=== PATIENT | female | born 1940 | race Caucasian/White ===

== ENCOUNTER 2020-11-17 19:34 | Emergency (ER) | payer OTHER, BC, SELFPAY ==
[~2020-11-17] VITALS: Ht 172.7 cm; Wt 64.4 kg
[2020-11-17 20:05] VITALS: BP_SYST 128
[2020-11-17 20:41] LABS: BASOPHILS # (AUTO) 0.1 K/uL (0.0-0.2); EOSINOPHILS # (AUTO) 0.1 K/uL (0.0-0.4); EOSINOPHILS % (AUTO) 1.2 % (0.0-4.0); HEMATOCRIT 38.3 % (36-48); HEMOGLOBIN 12.9 g/dL (12.0-16.0); LYMPHOCYTES # (AUTO) 1.8 K/uL (1.0-5.5); LYMPHOCYTES % (AUTO) 28.4 % (20.5-51.5); MEAN CORPUSCULAR HEMOGLOBIN 30 pg (27-31); MEAN CORPUSCULAR HGB CONC 34 % (32-36); MEAN CORPUSCULAR VOLUME 88 fL (79.0-98.0); MONOCYTES # (AUTO) 0.7 K/uL (0.0-1.0); MONOCYTES % (AUTO) 10.8 % (1.7-9.3); NEUTROPHILS # (AUTO) 3.8 K/uL (1.8-7.7); NEUTROPHILS % (AUTO) 58.6 % (40.0-70.0); PLATELET COUNT (AUTO) 191 K/uL (130-430); RED BLOOD CELL COUNT(AUTO) 4.33 MIL/uL (4.2-6.2); WHITE BLOOD COUNT (AUTO) 6.4 K/uL (4.8-10.8)
[2020-11-17 20:52] LABS: ANION GAP 8 (5-15); CALCIUM 8.8 mg/dL (8.4-11.0); CHLORIDE 106 mmol/L (98-107); CREATININE 1.15 mg/dL (0.55-1.30); GLUCOSE 108 mg/dL (70-99); POTASSIUM 3.6 mmol/L (3.5-5.1); SODIUM SERUM 142 mmol/L (136-145); UREA NITROGEN, BLOOD 17 mg/dL (8-21)
[2020-11-17 20:57] LABS: ALANINE AMINOTRANSFERASE 29 U/L (12-78); ALBUMIN 3.2 g/dL (3.4-4.8); ALCOHOL, BLOOD 3 mg/dL (<10); ASPARTATE AMINOTRANSFERASE 20 U/L (10-37); TOTAL BILIRUBIN 0.6 mg/dL (0.0-1.0)
[2020-11-17 21:00] LABS: ACETAMINOPHEN < 1 ug/mL (1-30)
[2020-11-17 21:02] LABS: CHOLESTEROL 128 mg/dL (<200); TRIGLYCERIDES 194 mg/dL (30-150)
[2020-11-17 21:03] LABS: HDL CHOLESTEROL 53 mg/dL (>55); LDL CHOLESTEROL 57 mg/dL (<100)
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
[2020-11-17 22:47] LABS: BARBITURATE, URINE NEGATIVE (NEG <=200)
[2020-11-17 22:48] LABS: BENZODIAZEPINE, URINE NEGATIVE (NEG <=150); CANNABINOID, URINE NEGATIVE (NEG <=50); COCAINE, URINE NEGATIVE (NEG <=150); METHAMPHETAMINES SCREEN,URINE NEGATIVE (NEG <=500); OPIATE, URINE NEGATIVE (NEG <=100); PHENCYCLIDINE SCREEN,URINE NEGATIVE (NEG <=25); UR TRICYCLIC ANTIDEPRESSANTS NEGATIVE (NEG <=300); URINE AMPHETAMINE NEGATIVE (NEG <=500); URINE METHADONE NEGATIVE (NEG <=200); URINE OXYCODONE SCREEN NEGATIVE (NEG <=100); URINE PROPOXYPHENE SCREEN NEGATIVE (NEG <=300)
--- NOTE | 2020-11-17 23:16 | NUR ---
Patient resting quietly. No acute distress noted. Vital signs within normal range. walking around in hallways. patient redirected back to her room continue to monitor.
--- NOTE | 2020-11-18 00:15 | NUR ---
Patient given written and verbal discharge instructions and verbalizes understanding. ER discussed with patient the results and treatment provided. Patient in stable condition. Opportunity for questions provided and answered. Medication side effect fact sheet provided. Addendum: 11/18/20 at 0017 by [email or web address] left message for report 2nd to no answer. await call back
[2020-11-18 00:17] VITALS: BP_SYST 125
== END 2020-11-18 00:15 | disposition home or self-care (01) ==
LOC: SED 19:34
DX: F29 Unspecified psychosis not due to a substance or known physiological condition (principal); E03.9 Hypothyroidism, unspecified; Z88.0 Allergy status to penicillin
CPT/HCPCS: 36415; 80053; 80061; 80307; 83036; 85025; 87081; 99283; G0480; G0481; G0482